=== PATIENT | female | born 1965 | race Caucasian/White ===

== ENCOUNTER → 2017-02-17 | Outpatient (CLI) | payer OTHER | PROVIDERS: ATTEND Physical Medicine & Rehabilitation | DX: R13.10 Dysphagia, unspecified (principal); S06.9X0A Unspecified intracranial injury without loss of consciousness, initial encounter | CPT/HCPCS: 92611-GN ==

== ENCOUNTER → 2017-10-03 | Outpatient (CLI) | payer OTHER, MEDICAID | LOC: FIMAGING 08:52 | PROVIDERS: ATTEND Physical Medicine & Rehabilitation | DX: M50.220 Other cervical disc displacement, mid-cervical region, unspecified level (principal); M50.223 Other cervical disc displacement at C6-C7 level ==

== ENCOUNTER → 2017-10-20 | Outpatient (CLI) | payer OTHER, MEDICAID | LOC: FIMAGING 13:28 | PROVIDERS: ATTEND Physical Medicine & Rehabilitation | DX: M50.91 Cervical disc disorder, unspecified, high cervical region (principal) | CPT/HCPCS: 72125-PO ==

== ENCOUNTER 2018-04-10 10:42 | Emergency (ER) | payer MEDICAID, OTHER ==
--- NOTE | 2018-04-10 12:26 | EDPHY ---
H & P Time Seen by Provider: 04/10/18 11:11 HPI/ROS: CHIEF COMPLAINT: Bleach to eyes HISTORY OF PRESENT ILLNESS: Patient states she was doing some cleaning around the house and splash bleach to both her eyes about an hour prior to arrival. She did wash her face and then got in the shower. She states after the shower she noticed some haziness in her vision. Denies eye pain. Denies other complaints. REVIEW OF SYSTEMS: Negative except per HPI. General Appearance: Alert, no distress. Eyes: Pupils equal and round no icterus, mild conjunctival injection. Cornea is clear. PH between 7 and 8. Respiratory: No respiratory distress Neurological: Awake, alert, no focal deficits. Skin: Warm and dry, no rashes. Musculoskeletal: Neck is supple nontender. Extremities are symmetrical, full range of motion, no edema. Psychiatric: Patient is oriented X 3, there is no agitation. Medical/surgical history: Does not wear glasses or contacts. History of TBI. No medications Social history: Nonsmoker Smoking Status: Never smoked Constitutional: Initial Vital Signs Temperature (C) 36.6 C 04/10/18 11:04 Heart Rate 78 04/10/18 11:04 Respiratory Rate 18 04/10/18 11:04 Blood Pressure 157/66 H 04/10/18 11:04 O2 Sat (%) 96 04/10/18 11:04 O2 Delivery Mode Room Air Allergies/Adverse Reactions: Penicillins Allergy (Intermediate, Verified 03/05/13 18:50) Sulfa (Sulfonamide Antibiotics) Allergy (Intermediate, Verified 03/05/13 18:50) Home Medications: Medication Instructions Recorded Miscellaneous Medical Supply [NO 1 e[place] [facility] [place] MEDS] Medical Decision Making Differential Diagnosis: Differential diagnosis includes conjunctivitis, corneal abrasion, corneal ulcer , ocular foreign body. After evaluation suspect chemical conjunctivitis from household bleach exposure. Visual acuity is normal and pH normal after irrigation with normal saline via Fadi lens. Recommended to use nothing in her eyes other than artificial tears. Return precautions discussed. Given ophthalmology for follow-up as needed. Stable for discharge. Departure - Departure Disposition: Home, Routine, Self-Care Clinical Impression: Acute conjunctivitis of both eyes Qualifiers: Acute conjunctivitis type: toxic Qualified Code(s): H10.213 - Acute toxic conjunctivitis, bilateral Condition: Good Instructions: Conjunctivitis (ED) Additional Instructions: Use artificial tears only in the ice today. Follow up with Ophthalmology as needed. Referrals: Ramonita Gay MD [Primary Care Provider] - As per Instructions Radha Gibson MD [Medical Doctor] - As per Instructions
[2018-04-10 13:03] VITALS: BP 137/62
== END 2018-04-10 12:30 | disposition home or self-care (01) ==
LOC: CED 10:42
DX: T54.91XA Toxic effect of unspecified corrosive substance, accidental (unintentional), initial encounter (principal); H10.213 Acute toxic conjunctivitis, bilateral